=== PATIENT | female | born 1935 | race Caucasian/White ===

== ENCOUNTER 2021-03-05 11:47 | Emergency (ER) | payer MEDICARE, BC ==
[~2021-03-05] VITALS: Ht 165.1 cm; Wt 68.0 kg
[~2021-03-05 11:47] MED LIST: ASPI325; ATEN25; ATOR10; BENAML10/2; CALC1.25T; CALCAVITD PO; CENTRUM SILVER1 EAC2 PO; CLOP75 PO; DOCU100 PO; Exforge 5-1601 EACH PO; FLUO10 PO; LORA.5; MOMENI; MULVITMINF; OLME20; POTA8; TRIHYD253A; VERA120ERB PO
[2021-03-05] MEDS ORDERED: VOLTAREN ARTHRI20 GM TOP (15:31)
== END 2021-03-05 15:37 | disposition home or self-care (01) ==
LOC: ER 11:47
DX: M94.0 Chondrocostal junction syndrome [Tietze] (principal); S20.219A Contusion of unspecified front wall of thorax, initial encounter; X58.XXXA Exposure to other specified factors, initial encounter
CPT/HCPCS: 71111; 99283-25

== ENCOUNTER → 2022-12-21 | Outpatient (CLI) | payer MEDICARE, BC ==
[~2022-12-21] MED LIST changes: +VOLTAREN ARTHRI20 GM TOP
== END | disposition home or self-care (01) ==
LOC: LAB 15:40 → LAB SHORT 15:40
DX: N23 Unspecified renal colic (principal); R82.90 Unspecified abnormal findings in urine
CPT/HCPCS: 87077; 87086; 87186

== ENCOUNTER → 2023-03-23 | Outpatient (CLI) | payer MEDICARE, BC ==
[2023-03-23 10:38] LABS: Source, Urine Clean Catch
[2023-03-23 12:04] LABS: Appearance, Urine Cloudy (Clear); Bilirubin, Urine Neg (Neg); Blood, Urine 3+ (Neg); Color, Urine Yellow (P-Yellow); Glucose Qualitative, Urine Neg (Neg); Ketones, Urine Neg (Neg); Leukocyte Esterase, Urine 3+ (Neg); Nitrite, Urine Neg (Neg); Protein, Urine 2+ (Neg); Urobilinogen, Urine NORM (Normal)
[2023-03-23 12:25] LABS: Bacteria Many /hpf; Mucus Mod (0-Heavy); Red Blood Cells, Urine 0-2 /hpf (0-2); Squamous Epithelial Cells Few /hpf (Few); White Blood Cells, Urine TNTC /hpf (0-5)
== END | disposition home or self-care (01) ==
LOC: LAB 10:36 → LAB SHORT 10:36
PROVIDERS: Nurse Practitioner
DX: R82.90 Unspecified abnormal findings in urine (principal)
CPT/HCPCS: 81001; 87077; 87086; 87186

== ENCOUNTER → 2023-06-05 | Outpatient (CLI) | payer MEDICARE, BC | LOC: LAB 17:41 → LAB SHORT 17:41 | DX: R31.9 Hematuria, unspecified (principal) | CPT/HCPCS: 87077; 87086; 87186 ==

== ENCOUNTER 2023-06-08 12:15 | Emergency (ER) | payer MEDICARE, BC ==
[~2023-06-08] VITALS: Ht 167.6 cm; Wt 65.8 kg
[2023-06-08 12:37] VITALS: BP 97/55
[2023-06-08 13:07] LABS: BASOPHILS ABSOLUTE AUTO 0.02 K/mm3 (0.00-0.23); BASOPHILS PERCENT AUTO 0 % (0-2); EOSINOPHILS ABSOLUTE AUTO 0.01 K/mm3 (0.00-0.68); EOSINOPHILS PERCENT AUTO 0 % (0-6); Hematocrit 39.6 % (33.0-51.0); Hemoglobin 13.4 g/dL (11.5-16.0); IMMATURE GRAN ABSOLUTE AUTO 0.03 K/mm3 (0.00-0.10); IMMATURE GRAN PERCENT AUTO 0 % (0-1); LYMPHOCYTES ABSOLUTE AUTO 0.56 K/mm3 (0.84-5.20); LYMPHOCYTES PERCENT AUTO 7 % (21-46); MONOCYTES ABSOLUTE AUTO 0.69 K/mm3 (0.16-1.47); MONOCYTES PERCENT AUTO 9 % (4-13); Mean Corpuscular HGB 31.7 pg (26.0-34.0); Mean Corpuscular HGB Conc 33.8 g/dL (31.5-36.5); Mean Corpuscular Volume 94 fL (80-100); Mean Platelet Volume 11.2 fL (9.1-12.4); NEUTROPHILS ABSOLUTE AUTO 6.68 K/mm3 (1.96-9.15); NEUTROPHILS PERCENT AUTO 84 % (41-73); Platelet Count 230 K/mm3 (150-400); RDW Coefficient Variation 12.1 % (11.7-14.2); RDW Standard Deviation 41.3 fL (35.1-46.3); Red Blood Cell Count 4.23 M/mm3 (3.80-5.20); White Blood Cell Count 7.99 K/mm3 (4.00-11.30)
[2023-06-08 13:24] LABS: Albumin, Blood 3.7 g/dL (3.4-5.0); Bilirubin, Total 0.7 mg/dL (0.1-1.0); Calcium, Blood 9.9 mg/dL (8.5-10.1); Creatinine, Blood 0.9 mg/dL (0.40-1.00); Globulin, Blood 3.8 g/dL (2.2-4.0); Potassium, Blood 4.4 mmol/L (3.5-5.5); Total Protein, Blood 7.5 g/dL (6.4-8.2)
== END 2023-06-08 14:37 | disposition home or self-care (01) ==
LOC: ER 12:15
PROVIDERS: Physician Assistant
DX: N39.0 Urinary tract infection, site not specified (principal); R11.2 Nausea with vomiting, unspecified; I10 Essential (primary) hypertension; Z79.899 Other long term (current) drug therapy
CPT/HCPCS: 80053; 83690; 85025; 99283; J0696

== ENCOUNTER 2023-07-19 11:05 | Emergency (ER) | payer MEDICARE, BC ==
[~2023-07-19] VITALS: Ht 162.6 cm; Wt 59.0 kg
[2023-07-19 11:44] LABS: BASOPHILS ABSOLUTE AUTO 0.05 K/mm3 (0.00-0.23); BASOPHILS PERCENT AUTO 0 % (0-2); EOSINOPHILS ABSOLUTE AUTO 0.02 K/mm3 (0.00-0.68); EOSINOPHILS PERCENT AUTO 0 % (0-6); Hemoglobin 13.5 g/dL (11.5-16.0); IMMATURE GRAN ABSOLUTE AUTO 0.06 K/mm3 (0.00-0.10); IMMATURE GRAN PERCENT AUTO 0 % (0-1); LYMPHOCYTES ABSOLUTE AUTO 1.26 K/mm3 (0.84-5.20); LYMPHOCYTES PERCENT AUTO 8 % (21-46); MONOCYTES ABSOLUTE AUTO 1.22 K/mm3 (0.16-1.47); MONOCYTES PERCENT AUTO 8 % (4-13); Mean Corpuscular HGB 31.8 pg (26.0-34.0); Mean Corpuscular HGB Conc 33.8 g/dL (31.5-36.5); Mean Corpuscular Volume 94 fL (80-100); Mean Platelet Volume 11.4 fL (9.1-12.4); NEUTROPHILS PERCENT AUTO 83 % (41-73); Platelet Count 270 K/mm3 (150-400); RDW Coefficient Variation 12.1 % (11.7-14.2); RDW Standard Deviation 42.4 fL (35.1-46.3); Red Blood Cell Count 4.24 M/mm3 (3.80-5.20); White Blood Cell Count 15.01 K/mm3 (4.00-11.30)
[2023-07-19 12:15] LABS: Albumin, Blood 3.5 g/dL (3.4-5.0); Albumin/Globulin Ratio 0.9 (0.8-1.8); Bilirubin, Total 1.6 mg/dL (0.1-1.0); Bun/Creatinine Ratio 22.9 (12.0-20.0); Calcium, Blood 9.8 mg/dL (8.5-10.1); Creatinine, Blood 0.66 mg/dL (0.40-1.00); Globulin, Blood 4.1 g/dL (2.2-4.0); Potassium, Blood 3.9 mmol/L (3.5-5.5); Total Protein, Blood 7.6 g/dL (6.4-8.2)
[2023-07-19 13:21] LABS: Source, Urine Clean Catch
[2023-07-19 13:27] LABS: Bilirubin, Urine Neg (Neg); Blood, Urine Neg (Neg); Color, Urine Yellow (P-Yellow); Glucose Qualitative, Urine Neg (Neg); Ketones, Urine Neg (Neg); Leukocyte Esterase, Urine Neg (Neg); Nitrite, Urine Neg (Neg); Protein, Urine Neg (Neg); Urobilinogen, Urine NORM (Normal)
[2023-07-19 13:40] LABS: Appearance, Urine Clear (Clear)
[2023-07-19 15:12] LABS: Magnesium, Blood 2.2 mg/dL (1.6-2.4); Phosphorus, Blood 3.3 mg/dL (2.5-4.9)
[2023-07-19 15:45] VITALS: BP 112/59
[2023-07-19] MEDS ORDERED: ONDA4ODT MM (15:49)
== END 2023-07-19 16:01 | disposition home or self-care (01) ==
LOC: ER 11:05
PROVIDERS: Physician Assistant
DX: R11.10 Vomiting, unspecified (principal); I10 Essential (primary) hypertension
CPT/HCPCS: 71046; 80053; 81003; 83735; 84100; 85025; 96374; 99285-25; J2405; J7030

== ENCOUNTER 2024-05-26 18:29 | Emergency (ER) | payer MEDICARE, BC ==
[~2024-05-26] VITALS: Ht 162.6 cm; Wt 52.2 kg
[~2024-05-26 18:29] MED LIST changes: +ONDA4ODT MM
[2024-05-26 18:32] VITALS: BP 176/94
[2024-05-26] MEDS ORDERED: Amoxicillin/Clavulanate K 875 MG Tab PO ONE (22:10)
[2024-05-26] MEDS ORDERED: AMOCLA875 PO (22:31)
== END 2024-05-26 23:20 | disposition home or self-care (01) ==
LOC: ER 18:29
DX: S02.2XXA Fracture of nasal bones, initial encounter for closed fracture (principal); S00.81XA Abrasion of other part of head, initial encounter; W05.0XXA Fall from non-moving wheelchair, initial encounter; I10 Essential (primary) hypertension; Z79.899 Other long term (current) drug therapy
CPT/HCPCS: 70450; 70486; 99283-25; A9270